=== PATIENT | female | born 1955 | race African-American/Black ===

== ENCOUNTER 2024-05-16 10:50 | Outpatient (CLI) | payer MEDICARE ==
[~2024-05-16 10:50] MED LIST: Iopamidol 370 76% 100 ML VIAL ONE; Magnevist 469MG/ML 20 ML VIAL ONE
== END 2024-05-16 10:51 | disposition home or self-care (01) ==
LOC: CSHCT 10:50
PROVIDERS: ATTEND Surgery
DX: C20 Malignant neoplasm of rectum (principal); Z12.12 Encounter for screening for malignant neoplasm of rectum; R91.1 Solitary pulmonary nodule
CPT/HCPCS: 71260; 72197; 74177